=== PATIENT | male | born 1975 | race Caucasian/White ===

== ENCOUNTER 2021-03-14 10:31 | Emergency (ER) | payer BC ==
[~2021-03-14] VITALS: Ht 182.8 cm; Wt 83.9 kg
[2021-03-14] MEDS ORDERED: PREDNISONE20 M1 PO (11:38)
== END 2021-03-14 11:41 | disposition home or self-care (01) ==
LOC: ED 10:31
DX: H61.21 Impacted cerumen, right ear (principal)